=== PATIENT | female | born 1965 | race Caucasian/White ===

== ENCOUNTER 2018-01-10 01:10 | Day surgery (SDC) | payer OTHER ==
[~2018-01-10] VITALS: Ht 162.6 cm; Wt 62.6 kg
[~2018-01-10 01:10] MED LIST: CALC500T6 PO; CHOL10005 PO; EST42T VG; FISH OIL1 CAP PO; GLUC-198 PO; LOR5/325 PO; OMEG100027 PO; VITA0.4T10 PO; [UNRECOGNIZED DRUG - OTHER]; [UNRECOGNIZED DRUG - OTHER] TOP
[2018-01-10] MEDS ORDERED: PROPOFOL EMUL(*) 10MG/ML 20 ML 20 ML ONE ×2 (11:17→12:51)
[2018-01-10] MEDS ORDERED: NORMOSOL R SOLN(*) 1000 ML BAG 1,000 ML IV PRN (12:00)
[2018-01-10] MEDS ORDERED: LIDOCAINE/SOD BICARB 8.4% SYR ID ONE (12:00)
[2018-01-10 12:07] VITALS: BP 113/79
[2018-01-10 13:09] VITALS: BP 100/62
--- NOTE | 2018-01-10 13:11 | Short(Outpt) Discharge Summary ---
Discharge Summary Reason for Hosp/Final Diag: (1) Colon cancer screening Status: Chronic Hospital Course & Plan: Colonoscopy completed without problems, normal c-scope. Departure Discharge to: Home, Self Care Discharge Instructions Home Meds Reported Medications Calcium Carbonate (CALCIUM) 500 Mg Tablet, PO 01/05/18 Cholecalciferol (Vitamin D3) (VITAMIN D3) 1,000 Unit Tablet, 1 TAB PO QDAY, TAB 10/18/17 Vitamin B Complex/Folic Acid (VITAMIN B-50 COMPLEX TABLET) 0.4 Mg Tablet, 1 TAB PO QDAY 10/18/17 [place]-3 Fatty Acids (FISH OIL CONCENTRATE) 1,000 Mg Capsule, 1 CAP PO QDAY, CAPSULE 10/18/17 Diet: Regular Activity: As Tolerated Special Instructions: Your colonoscopy was completed without any problems and your prep was excellent (Good Job!!). Your colonoscopy was completely normal. I recommend that you undergo another colonoscopy in 10 years for screening. JULEE CLIFFORD MD Jan 10, 2018 13:11
[2018-01-10 13:40] VITALS: BP 101/71
[2018-01-10 14:00] VITALS: BP 105/59
== END 2018-01-10 14:30 | disposition home or self-care (01) ==
LOC: OR 01:10
PROVIDERS: ATTEND Surgery
DX: Z12.11 Encounter for screening for malignant neoplasm of colon (principal)
CPT/HCPCS: 00812; 45378; J2704